=== PATIENT | female | born 1955 | race Caucasian/White ===

== ENCOUNTER 2017-11-22 14:59 | Emergency (ER) | payer BC ==
[~2017-11-22] VITALS: Ht 165.1 cm; Wt 96.0 kg
[2017-11-22 15:22] VITALS: BP 117/78; PULSE 104; RESP 17; TEMP 98.8; O2SAT 97
[2017-11-22] MEDS ORDERED: ATOR10TA15 PO (16:19)
[2017-11-22] MEDS ORDERED: LEVO25TA4 PO (16:19)
[2017-11-22] MEDS ORDERED: VALA1TAB PO (16:19)
[2017-11-22] MEDS ORDERED: TRAZ50TA12 PO (16:19)
[2017-11-22] MEDS ORDERED: VENL25TA PO (16:19)
--- NOTE | 2017-11-22 16:38 | PD ---
HPI Chief Complaint: GI Complaint Time Seen by Provider: 16:10 Travel History International Travel<30 days: No Contact w/Intl Traveler<30days: No Traveled to known affect area: No History of Present Illness HPI 62-year-old female presents to the emergency department with concern of blood streaks in her vomit this morning 2. The second time she vomited said there was quite a bit of blood in it. She has had intermittent vomiting in the mornings for the past year to year and a half. She has never vomited blood in the past. The last time she vomited was 3 weeks ago. Had endoscopy and colonoscopy one year ago and per the patient was told everything was fine. She called her reconnaissance crewmember, advanced reconnaissance crewmember, and was told to come to the ER. She denies abdominal pain, fevers. Denies diarrhea, hematochezia, dysuria. No known aggravating or relieving factors. Symptoms are mild in severity. Has not taken any medications or trying treatments to alleviate his symptoms. Primary care provider is in [place]. No known allergies. History of hypercholesterolemia and fibromyalgia. PFSH Past Medical History Fibromyalgia: Yes Thyroid Disease: Yes (THYROIDECTOMY SECONDARY TO BENIGN TUMOR) Social History Alcohol Use: No Tobacco Use: No Allergies-Medications (Allergen,Severity, Reaction): Coded Allergies: erythromycin base (Verified Allergy, Severe, 11/22/17) Reported Meds & Prescriptions Reported Meds & Active Scripts Active Reported Levothyroxine (Levothyroxine Sodium) 25 Mcg Tab 25 Mcg PO DAILY Trazodone (Trazodone HCl) 50 Mg Tab 50 Mg PO HS Valacyclovir (Valacyclovir HCl) 1,000 Mg Tab 1,000 Mg PO BID Atorvastatin (Atorvastatin Calcium) 10 Mg Tab 10 Mg PO HS Effexor (Venlafaxine HCl) 25 Mg Tab 25 Mg PO Q12H Review of Systems Except as stated in HPI: all other systems reviewed are Neg Physical Exam Narrative GENERAL: Well-nourished, well-developed female patient, in no acute distress; afebrile SKIN: Warm and dry. HEAD: Atraumatic. Normocephalic. EYES: Pupils equal and round. No scleral icterus. No injection or drainage. ENT: Mucosa pink and moist. Airway patent. NECK: Trachea midline. CARDIOVASCULAR: Regular rate and rhythm. No murmur appreciated. RESPIRATORY: No accessory muscle use. Clear to auscultation. Breath sounds equal bilaterally. GASTROINTESTINAL: Abdomen soft, nontender, nondistended. Hepatic and splenic margins not palpable. Bowel sounds are active 4 quadrants. Nonrigid. No guarding. MUSCULOSKELETAL: No obvious deformities. No clubbing. No cyanosis. No edema. NEUROLOGICAL: Awake and alert. Oriented 3. No obvious cranial nerve deficits. Motor grossly within normal limits. Normal speech. PSYCHIATRIC: Appropriate mood and affect; insight and judgment normal. Data Data Last Documented VS Vital Signs Date Time Temp Pulse Resp B/P (MAP) Pulse Ox O2 Delivery O2 Flow Rate FiO2 11/22/17 15:22 98.8 104 17 117/78 (91) 97 Orders Orders Complete Blood Count With Diff (11/22/17:) Comprehensive Metabolic Panel (11/22/17:) Urinalysis - C+S If Indicated (11/22/17 15:) Lipase (11/22/17 15:) Urine Culture (11/22/17 15:37) Labs Laboratory Tests Test 11/22/17 15:37 White Blood Count 7.2 TH/MM3 Red Blood Count 4.46 MIL/MM3 Hemoglobin 14.8 GM/DL Hematocrit 44.1 % Mean Corpuscular Volume 98.8 FL Mean Corpuscular Hemoglobin 33.2 PG Mean Corpuscular Hemoglobin Concent 33.6 % Red Cell Distribution Width 13.8 % Platelet Count 223 TH/MM3 Mean Platelet Volume 9.1 FL Neutrophils (%) (Auto) 70.0 % Lymphocytes (%) (Auto) 21.0 % Monocytes (%) (Auto) 6.1 % Eosinophils (%) (Auto) 2.2 % Basophils (%) (Auto) 0.7 % Neutrophils # (Auto) 5.1 TH/MM3 Lymphocytes # (Auto) 1.5 TH/MM3 Monocytes # (Auto) 0.4 TH/MM3 Eosinophils # (Auto) 0.2 TH/MM3 Basophils # (Auto) 0.1 TH/MM3 CBC Comment DIFF FINAL Differential Comment Urine Color YELLOW Urine Turbidity HAZY Urine pH 6.0 Urine Specific Crocker 1.028 Urine Protein TRACE mg/dL Urine Glucose (UA) NEG mg/dL Urine Ketones NEG mg/dL Urine Occult Blood NEG Urine Nitrite POS Urine Bilirubin NEG Urine Urobilinogen 2.0 MG/DL Urine Leukocyte Esterase TRACE Urine RBC 2 /hpf Urine WBC 3 /hpf Urine Squamous Epithelial Cells 2 /hpf Urine Calcium Oxalate Crystals MOD /hpf Urine Amorphous Sediment RARE Urine Bacteria MANY /hpf Urine Hyaline Casts 3 /lpf Urine Mucus MOD /lpf Microscopic Urinalysis Comment CULTURE INDICATED Blood Urea Nitrogen 14 MG/DL Creatinine 1.09 MG/DL Random Glucose 90 MG/DL Total Protein 7.9 GM/DL Albumin 4.1 GM/DL Calcium Level 9.3 MG/DL Alkaline Phosphatase 82 U/L Aspartate Amino Transf (AST/SGOT) 19 U/L Alanine Aminotransferase (ALT/SGPT) 24 U/L Total Bilirubin 0.6 MG/DL Sodium Level 140 MEQ/L Potassium Level 3.7 MEQ/L Chloride Level 105 MEQ/L Carbon Dioxide Level 27.8 MEQ/L Anion Gap 7 MEQ/L Estimat Glomerular Filtration Rate 51 ML/MIN Lipase 169 U/L MDM Medical Decision Making Medical Screen Exam Complete: Yes Emergency Medical Condition: Yes Medical Record Reviewed: Yes Differential Diagnosis Gastritis, peptic ulcer disease, bleeding ulcer, bloody vomitus Narrative Course 62-year-old female with bloody vomit 2 this morning. Physical exam is unremarkable. She denies abdominal pain. She has intermittent vomiting for the past year to year and a half, and had endoscopy and colonoscopy 1 year ago which per the patient were normal. She is followed by advanced reconnaissance crewmember. She said she called her reconnaissance crewmember and was told to come to the ER. I discussed the patient with Dr. Erazo, my attending physician, and he agrees with my plan of care. CBC, CMP, lipase, urinalysis ordered. 1845: CBC, CMP unremarkable. Urinalysis for signs of infection and reflex to culture. Keflex prescribed for home. Instructed patient to follow-up with reconnaissance crewmember. Instructed patient to follow up with primary care provider. Patient verbalizes understanding and agreement with treatment plan. Patient is medically cleared and stable for discharge. Discussed reasons to return to the emergency department. Patient agrees with treatment plan. The patients vital signs are stable and the patient is stable for outpatient follow- up and treatment. Patient discharged home, stable and in no acute distress. Diagnosis Primary Impression: Bloody vomitus Qualified Codes: K92.0 - Hematemesis Additional Impression: UTI (urinary tract infection) Qualified Codes: N39.0 - Urinary tract infection, site not specified; R31.9 - Hematuria, unspecified Referrals: [facility] Apprentice Primary Care Physician Patient Instructions: General Instructions, Urinary Tract Infection in Women ( ED) Additional Instructions: Take antibiotics as prescribed and complete full course Take Pyridium for bladder spasms: Pyridium will turn your urine bright orange Drink plenty of fluids Maintain good personal hygiene Follow-up with primary care provider Return to the emergency department immediately with worsening of symptoms Med/Other Pt SpecificInfo: Prescription(s) given Scripts Ondansetron (Zofran) 4 Mg Tab 4 MG PO Q8HR Y for NAUSEA OR VOMITING, #6 TAB 0 Refills Prov: Barb Rivero 11/22/17 Cephalexin (Keflex) 500 Mg Cap 500 MG PO Q12H for Infection for 7 Days, #14 CAP 0 Refills Prov: Barb Rivero 11/22/17 Disposition: 01 DISCHARGE HOME Condition: Stable Barb Rivero Nov 22, 2017 16:38
[2017-11-22 17:08] LABS: AUTOMATED NEUTROPHIL # 5.1 TH/MM3 (1.8-7.7); BASOPHIL # 0.1 TH/MM3 (0-0.2); BASOPHIL % 0.7 % (0.0-2.0); EOSINOPHIL # 0.2 TH/MM3 (0-0.4); EOSINOPHIL % 2.2 % (0.0-4.0); HEMATOCRIT 44.1 % (35.0-46.0); HEMOGLOBIN 14.8 GM/DL (11.6-15.3); LYMPHOCYTE # 1.5 TH/MM3 (1.0-4.8); MEAN CELL VOLUME 98.8 FL (80.0-100.0); MEAN CORPUSCULAR HEMOGLOBIN 33.2 PG (27.0-34.0); MEAN CORPUSCULAR HGB CONC 33.6 % (32.0-36.0); MEAN PLATELET VOLUME 9.1 FL (7.0-11.0); MONO % 6.1 % (0.0-8.0); MONOCYTE # 0.4 TH/MM3 (0-0.9); PLATELET COUNT 223 TH/MM3 (150-450); RED BLOOD COUNT 4.46 MIL/MM3 (4.00-5.30); RED CELL DISTRIBUTION WIDTH 13.8 % (11.6-17.2); WHITE BLOOD COUNT 7.2 TH/MM3 (4.0-11.0)
[2017-11-22 17:15] LABS: ALBUMIN 4.1 GM/DL (3.4-5.0); ALT (GPT) 24 U/L (10-53); AST (GOT) 19 U/L (15-37); BICARBONATE 27.8 MEQ/L (21.0-32.0); BLOOD UREA NITROGEN 14 MG/DL (7-18); CALCIUM 9.3 MG/DL (8.5-10.1); CHLORIDE 105 MEQ/L (98-107); CREATININE 1.09 MG/DL (0.50-1.00); GLOMERULAR FILTRATION RATE 51 ML/MIN (>89); GLUCOSE,RANDOM 90 MG/DL (74-106); SODIUM (NA) 140 MEQ/L (136-145)
[2017-11-22 17:17] LABS: ALKALINE PHOSPHATASE 82 U/L (45-117); TOTAL BILIRUBIN ADULT 0.6 MG/DL (0.2-1.0); TOTAL PROTEIN 7.9 GM/DL (6.4-8.2)
[2017-11-22 18:05] LABS: AMORPHOUS SEDIMENT, URINE RARE; BACTERIA, URINE MANY /hpf; BILIRUBIN, URINE NEG (NEG); BLOOD, URINE NEG (NEG); CALCIUM OXALATE CRYSTALS,URINE MOD /hpf; GLUCOSE,URINE NEG (NEG); HYALINE CAST, URINE 3 /lpf (RARE); KETONE, URINE NEG (NEG); MUCUS URINE MOD /lpf (OCC); NITRITE,URINE POS (NEG); SQUAMOUS EPITHELIAL CELL URINE 2 /hpf (0-5); URINE COLOR YELLOW (YELLW/STRAW); URINE LEUKOCYTE ESTERASE TRACE (NEG)
[2017-11-22] MEDS ORDERED: ZOFR4TAB PO (18:47)
[2017-11-22] MEDS ORDERED: CEPH-460 PO (18:47)
== END 2017-11-22 19:12 | disposition home or self-care (01) ==
LOC: NEPD 14:59
DX: K92.0 Hematemesis (principal); N39.0 Urinary tract infection, site not specified; B96.20 Unspecified Escherichia coli [E. coli] as the cause of diseases classified elsewhere; M79.7 Fibromyalgia; E78.00 Pure hypercholesterolemia, unspecified; E07.9 Disorder of thyroid, unspecified; Z88.1 Allergy status to other antibiotic agents; Z79.899 Other long term (current) drug therapy
CPT/HCPCS: 80053; 81001; 83690; 85025; 87077; 87086; 87186; 99283